=== PATIENT | female | born 1990 | race Hispanic/Latino ===

== ENCOUNTER 2020-02-17 17:24 | Emergency (ER) | payer BC, SELFPAY ==
[2020-02-17 18:56] LABS: Absolute Lymphocytes (CBC) 2.5 K/uL (0.7-4.9); Basophils % 0.3 % (0-1.3); Hematocrit 32.7 % (36.0-45.0); Lymphocytes % 33.8 % (15.3-44.8); MPV 8.8 fL (7.6-11.3); RBC Red Blood Cell Count 4.05 M/uL (3.86-4.86)
[2020-02-17 19:27] LABS: ALT/SGPT 35 U/L (12-78); AST/SGOT 20 U/L (15-37); Albumin 3.6 g/dL (3.4-5.0); Alkaline Phosphatase 49 U/L (45-117); BUN Blood Urea Nitrogen 23 mg/dL (7-18); Bicarbonate 26 mmol/L (21-32); Bilirubin Direct 0.1 mg/dL (0-0.2); Bilirubin Total 0.4 mg/dL (0.2-1.0); Ferritin 4.7 ng/mL (8-388); Glucose Level 82 mg/dL (74-106); Lipase 120 U/L (73-393); Potassium 4.4 mmol/L (3.5-5.1); Protein, Total 7.4 g/dL (6.4-8.2); Sodium Level 139 mmol/L (136-145); Troponin (Emerg Dept Use Only) < 0.02 ng/mL (0.0-0.045)
[2020-02-17 19:28] LABS: C-Reactive Protein < 2.90 mg/L (<3.00)
--- NOTE | 2020-02-17 19:31 | RAD REPORT ---
EXAM DESCRIPTION: RAD - Chest Single View - 02/17/2020 6:09 pm CLINICAL HISTORY: DYSPNEA, fever, positive COVID test COMPARISON: Two view chest February 2018 TECHNIQUE: AP portable chest image was obtained 02/17/2020 6:09 pm . FINDINGS: Lung volumes are low. No peripheral mass or consolidation. Heart and vasculature are anat l. No measurable pleural effusion and no pneumothorax. No acute bony abnormality seen. No acute aorti c findings suspected. IMPRESSION: No acute cardiopulmonary process.
[2020-02-17 19:36] LABS: Protime INR 0.97
--- NOTE | 2020-02-17 19:41 | ER ---
Nurse's Notes [facility] Name: Eleni Zendejas Age: 29 yrs Sex: Female : 1990 Arrival Date: 02/17/2020 Time: 17:29 Bed 5 Private MD: Diagnosis: Coronavirus infection, unspecified Presentation: 02/16 17:36 Chief complaint: Patient states: Tested positive for Covid 02/05/20. My chest pain ca1 getting worse and worse and SOB with exertion. Coronavirus screen: Client reports previous positive COVID test result. Date of collection: February 05, 2020. Ebola Screen: Patient negative for fever greater than or equal to 101.5 degrees Fahrenheit, and additional compatible Ebola Virus Disease symptoms Patient denies exposure to infectious person. Patient denies travel to an Ebola-affected area in the 21 days before illness onset. No symptoms or risks identified at this time. Initial Sepsis Screen: Does the patient meet any 2 criteria? No. Patient's initial sepsis screen is negative. Does the patient have a suspected source of infection? No. Patient's initial sepsis screen is negative. Risk Assessment: Do you want to hurt yourself or someone else? Patient reports no desire to harm self or others. Onset of symptoms was February 17, 2020. 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 - Social history:: Smoking status: Patient denies any tobacco usage or history of. Screenin:45 Abuse screen: Denies threats or abuse. Denies injuries from another. Nutritional ph screening: No deficits noted. Tuberculosis screening: No symptoms or risk factors identified. Fall Risk None identified. Assessment: 18:44 General: Appears in no apparent distress. comfortable, Behavior is calm, cooperative, ph appropriate for age. Pain: Complains of pain in back and chest. Neuro: Level of Consciousness is awake, alert, obeys commands, Oriented to person, place, time, situation. Cardiovascular: Reports chest pain, fatigue, shortness of breath, Capillary refill < 3 seconds in bilateral fingers Patient's skin is warm and dry. Respiratory: Reports shortness of breath cough that is Airway is patent Respiratory effort is even, unlabored, Respiratory pattern is regular, symmetrical. GI: No signs and/or symptoms were reported involving the gastrointestinal system. Derm: Skin is intact, is healthy with good turgor, Skin is pink, warm \T\ dry. Musculoskeletal: Circulation, motion, and sensation intact. Range of motion: intact in all extremities. Vital Signs: 17:36 BP 128 / 86; Pulse 73; Resp 16 S; Temp 97.1(TE); Pulse Ox 100% on R/A; Weight 97.52 kg ca1 (R); Height 5 ft. 5 in. (165.10 cm) (R); Pain 5/10; 18:45 BP 110 / 74; Pulse 68; Resp 18; Pulse Ox 100% on R/A; ph 19:47 BP 107 / 77; Pulse 68; Resp 18; Temp 97.3; Pulse Ox 100% on R/A; mg2 17:36 Body Mass Index 35.78 (97.52 kg, 165.10 cm) ca1 ED Course: 17:29 Patient arrived in ED. rg4 17:38 Triage completed. ca1 17:39 Arm band placed on right wrist. ca1 17:49 Patient has correct armband on for positive identification. Bed in low position. Call mh5 light in reach. Side rails up X2. Pillow given. residential monitor on. Pulse ox on. NIBP on. 17:52 Day Chapman FNP-C is [facility]. kb 17:52 Allen Reyes MD is Attending Physician. kb 17:57 Alley Lopez, FLOR is Primary Nurse. ph 18:07 CXR XRAY In Process Unspecified. EDMS 18:32 EKG done, by ED staff. mh5 19:20 Primary Nurse role handed off by Alley Lopez, RN tt3 19:44 Ramana Mars, FLOR is Primary Nurse. mg2 19:47 No provider procedures requiring assistance completed. Patient did not have IV access mg2 during this emergency room visit. Administered Medications: No medications were administered Outcome: 19:41 Discharge ordered by . kb 19:52 Discharged to home ambulatory. mg2 19:52 Condition: stable 19:52 Discharge instructions given to patient, Instructed on discharge instructions, follow up and referral plans. Demonstrated understanding of instructions, follow-up care. 19:53 Patient left the ED. mg2 Signatures: Dispatcher [employer] EDDay Roberson, PRINCIPAL ASSOCIATE-C PRINCIPAL ASSOCIATE-Alley Vázquez, FLOR RN ph Ro Andrade 4 Pretty Wallis 5 Ramana Mars RN RN mg2 Katherine Ramos RN RN ca1 Ana, Galindo tt3 Corrections: (The following items were deleted from the chart) 17:40 17:39 PMHx: None; ca1 ca1
--- NOTE | 2020-02-17 19:41 | EDPHYS ---
Physician Documentation [facility] Name: Eleni Zendejas Age: 29 yrs Sex: Female : 1990 Arrival Date: 02/17/2020 Time: 17:29 Bed 5 Private MD: ED Physician Allen Reyes HPI: 02/16 20:29 This 29 yrs old Female presents to ER via Ambulatory with complaints of kb Covid+, Shortness Of Breath, Chest Pain. 20:29 The patient or guardian reports cough, difficulty breathing. Onset: The kb symptoms/episode began/occurred 2 week(s) ago. Severity of symptoms: At their worst the symptoms were moderate, in the emergency department the symptoms are unchanged. Modifying factors: The symptoms are alleviated by nothing, the symptoms are aggravated by nothing. Associated signs and symptoms: The patient has no apparent associated signs or symptoms. The patient has not experienced similar symptoms in the past. The patient has not recently seen a physician. Pt reports she was diagnosed with covid 2 weeks ago and is still having cough and shortness of breath so she wanted to make sure everything was ok. 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 - Social history:: Smoking status: Patient denies any tobacco usage or history of. ROS: 20:28 Constitutional: Negative for fever, chills, and weight loss, Cardiovascular: Negative kb for chest pain, palpitations, and edema, Abdomen/GI: Negative for abdominal pain, nausea, vomiting, diarrhea, and constipation, Back: Negative for injury and pain, MS/Extremity: Negative for injury and deformity, Skin: Negative for injury, rash, and discoloration, Neuro: Negative for headache, weakness, numbness, tingling, and seizure. 20:28 Respiratory: Positive for cough, shortness of breath. Exam: 18:33 Constitutional: This is a well developed, well nourished patient who is awake, alert, kb and in no acute distress. Head/Face: Normocephalic, atraumatic. Chest/axilla: Normal chest wall appearance and motion. Nontender with no deformity. No lesions are appreciated. Cardiovascular: Regular rate and rhythm with a normal S1 and S2. No gallops, murmurs, or rubs. Normal PMI, no JVD. No pulse deficits. Respiratory: Lungs have equal breath sounds bilaterally, clear to auscultation and percussion. No rales, rhonchi or wheezes noted. No increased work of breathing, no retractions or nasal flaring. Abdomen/GI: Soft, non-tender, with normal bowel sounds. No distension or tympany. No guarding or rebound. No evidence of tenderness throughout. Skin: Warm, dry with normal turgor. Normal color with no rashes, no lesions, and no evidence of cellulitis. MS/ Extremity: Pulses equal, no cyanosis. Neurovascular intact. Full, normal range of motion. Neuro: Awake and alert, GCS 15, oriented to person, place, time, and situation. Cranial nerves II-XII grossly intact. Motor strength 5/5 in all extremities. Sensory grossly intact. Cerebellar exam normal. Normal gait. 18:33 ECG was reviewed by the Attending Physician. Vital Signs: 17:36 BP 128 / 86; Pulse 73; Resp 16 S; Temp 97.1(TE); Pulse Ox 100% on R/A; Weight 97.52 kg ca1 (R); Height 5 ft. 5 in. (165.10 cm) (R); Pain 5/10; 18:45 BP 110 / 74; Pulse 68; Resp 18; Pulse Ox 100% on R/A; ph 19:47 BP 107 / 77; Pulse 68; Resp 18; Temp 97.3; Pulse Ox 100% on R/A; mg2 17:36 Body Mass Index 35.78 (97.52 kg, 165.10 cm) ca1 MDM: 17:52 Patient medically screened. kb 19:40 Data reviewed: vital signs, nurses notes. Data interpreted: Pulse oximetry: on room air kb is 100 %. Interpretation: normal. Counseling: I had a detailed discussion with the patient and/or guardian regarding: the historical points, exam findings, and any diagnostic results supporting the discharge/admit diagnosis, lab results, radiology results, the need for outpatient follow up, a family practitioner, to return to the emergency department if symptoms worsen or persist or if there are any questions or concerns that arise at home. 02/16 17:53 Order name: Blood Culture Adult (2) kb 02/16 17:53 Order name: BMP kb 02/16 17:53 Order name: C-Reactive Protein kb 02/16 17:53 Order name: CBC with Diff kb 02/16 17:53 Order name: D-Dimer kb 02/16 17:53 Order name: Ferritin kb 02/16 17:53 Order name: Lactate kb 02/16 17:53 Order name: LFT's kb 02/16 17:53 Order name: Lipase kb 02/16 17:53 Order name: Procalcitonin kb 02/16 17:53 Order name: PT-INR; Complete Time: 19:38 kb 02/16 17:53 Order name: Ptt, Activated; Complete Time: 19:38 kb 02/16 17:53 Order name: Troponin (emerg Dept Use Only); Complete Time: 19:29 kb 02/16 17:54 Order name: Blood Culture EDMS 02/16 17:53 Order name: CXR XRAY; Complete Time: 19:32 kb 02/16 17:53 Order name: EKG; Complete Time: 17:54 kb 02/16 17:53 Order name: Cardiac monitoring; Complete Time: 18:46 kb 02/16 17:53 Order name: Droplet/Contact Precautions; Complete Time: 18:46 kb 02/16 17:53 Order name: EKG - Nurse/Tech; Complete Time: 18:32 kb 02/16 17:53 Order name: IV Start; Complete Time: 18:46 kb 02/16 17:54 Order name: Basic Metabolic Panel; Complete Time: 19:29 EDMS 02/16 17:54 Order name: C-Reactive Protein; Complete Time: 19:29 EDMS 02/16 17:54 Order name: CBC with Automated Diff; Complete Time: 18:58 EDMS 02/16 17:54 Order name: D-Dimer; Complete Time: 19:38 EDMS 02/16 17:54 Order name: Ferritin; Complete Time: 19:29 EDMS 02/16 17:54 Order name: Lactate; Complete Time: 19:01 EDMS 02/16 17:54 Order name: Liver (Hepatic) Function; Complete Time: 19:29 EDMS 02/16 17:54 Order name: Lipase; Complete Time: 19:29 EDMO 02/16 17:54 Order name: Procalcitonin; Complete Time: 19:41 EDMO 02/16 17:53 Order name: Labs collected and sent; Complete Time: 18:46 kb 02/16 17:53 Order name: O2 Per Protocol; Complete Time: 18:46 kb 02/16 17:53 Order name: O2 Sat Monitoring; Complete Time: 18:46 kb EC:33 Rate is 67 beats/min. Rhythm is regular. QRS [place] is Normal. TN interval is normal at kb 162 msec. QRS interval is normal at 78 msec. QT interval is normal at 404 msec. Administered Medications: No medications were administered Disposition: 02/17/20 19:41 Discharged to Home. Impression: Coronavirus infection, unspecified. - Condition is Stable. - Discharge Instructions: Viral Respiratory Infection, [id number]-Jo-[id number], COVID-19. - Medication Reconciliation Form, Thank You Letter, Antibiotic Education, Prescription Opioid Use form. - Follow up: Emergency Department; When: As needed; Reason: Worsening of condition. Follow up: Private Physician; When: 2 - 3 days; Reason: Recheck today's complaints, Continuance of care, Re-evaluation by your physician. Signatures: Dispatcher [employer] EDMO Day Chapman, MEDIA THEORIST AND AUTHOR OF-C MEDIA THEORIST AND AUTHOR OF-Ramana Heard RN RN mg2 Katherine Ramos RN RN ca1 Corrections: (The following items were deleted from the chart) 17:40 17:39 PMHx: None; ca1 ca1 19:53 19:41 02/17/2020 19:41 Discharged to Home. Impression: Coronavirus infection, mg2 unspecified. Condition is Stable. Forms are Medication Reconciliation Form, Thank You Letter, Antibiotic Education, Prescription Opioid Use. Follow up: Emergency Department; When: As needed; Reason: Worsening of condition. Follow up: Private Physician; When: 2 - 3 days; Reason: Recheck today's complaints, Continuance of care, Re-evaluation by your physician. kb
[2020-02-17 20:08] VITALS: O2SAT 100
[2020-02-17 20:10] VITALS: BP 107/77; TEMP 97.3
--- NOTE | 2020-02-18 14:06 | EKG ---
Test Date: 2020-02-17 Test Time: 18:24:23 Manager Content: TYSHAWN MEASUREMENT RESULTS: Intervals: Rate: 67 OK: 162 QRSD: 78 QT: 404 QTc: 426 [place]: P: 20 OK: 162 QRS: -15 T: 11 INTERPRETIVE STATEMENTS: Normal sinus rhythm Normal ECG No previous ECG available for comparison Electronically Signed On 02-18-20 14:04:44 SERVICE TECH by Edwin Aldrich
== END 2020-02-17 19:53 | disposition home or self-care (01) ==
LOC: ER 17:24
DX: U07.1 COVID-19 (principal); R07.9 Chest pain, unspecified
CPT/HCPCS: 36415; 71045; 80048; 80076; 82728; 83605; 83690; 84145; 84484; 85025; 85379; 85610; 85730; 86140; 87040; 93005; 99284

== ENCOUNTER 2021-04-30 23:16 | Emergency (ER) | payer SELFPAY ==
--- OUTSIDE RECORDS SUMMARY | 2021-04-30 23:19 | XMS REPORT | Continuity of Care Document ---
:1990 Author Organization Formerly [facility] t Address [address] [place] [address] Care Team Providers Name Role Phone PCP, DOES NOT HAVE A Primary Care Physician Unavailable Kathy SANDS Attending Clinician Unavailable Ktahy Sands DO Attending Clinician Kathy SANDS Admitting Clinician Unavailable Problems Condition Condition Condition Status Onset Resolution Last Treating Co mments Source Name Details Category Date Date Treatment Clinician Date No known No known Disease Unive rs active active ity of problems problems [facility] Allergies, Adverse Reactions, Alerts Allergy Allergy Status Severity Reaction(s) Onset Inactive Treating Comm ents Source Name Type Date Date Clinician NO KNOWN Drug Active Univers ALLERGIE Class ity of S [facility] Social History Social Habit Start Date Stop Date Quantity Comments Source Exposure to Not sure [facility] SARS-CoV-2 (event) Medica l Branch Sex Assigned At [birth year] [facility] 00:00:00 00:00:00 [facility] Smoking Status Start Date Stop Date Source Unknown if ever smoked [facility] Medications Ordered Filled Start Stop Current Ordering Indication Dosage Frequency Signature Comments Components Source Medication Medication Date Date Medication? Clinician (SIG) Name Name diphenhydrA 2020-02 No 25mg 25 mg, Uni vers MINE 03-16 Slow IV ity of (BENADRYL) 18:15: 17:47 [place], [place] injection 00 :00 ONCE, 1 Medical 25 mg dose, On Branch 01/14/21 at 1215, STAT metoclopram 2021-1 2021- No 10mg 10 mg, Uni vers jayson HCl 03-16 Slow IV ity of (REGLAN) 18:15: 17:47 Push, [place] injection 00 :00 ONCE, 1 Medical 10 mg dose, On Branch 01/14/21 at 1215, ZORAN NaCl 0.9% 2020-02- No 1000mL at 999 Uni vers (NS) bolus 03-16 mL/hr, ity of infusion 18:15: 18:52 1,000 mL, Naresh as 1,000 mL 00 :00 IV Medical Infusion, Branch ONCE, 1 dose, On Thu01/14/21 at 1215, ZORAN No known 2020-02 No Univers medications 03-16 ity of 11:08: [place] 40 [facility] Vital Signs Vital Name Observation Time Observation Value Comments Source Systolic blood 2021-01-14 17:11:00 123 mm[Hg] [facility] sity of pressure [facility] Diastolic blood 2021-01-14 17:11:00 78 mm[Hg] [facility] of pressure [facility] Heart rate 2021-01-14 17:11:00 78 /min [facility] Body temperature 2021-01-14 17:11:00 37 [facility] Respiratory rate 2021-01-14 17:11:00 18 /[facility] height 2021-01-14 17:11:00 162.6 cm [facility] Body weight 2021-01-14 17:11:00 113.399 kg [facility] BMI 2021-01-14 17:11:00 42.91 kg/m2 [facility] Oxygen saturation in 2021-01-14 17:11:00 98 /min [facility] Arterial blood by [facility] Pulse oximetry [place] Procedures Procedure Date / Time Performed Performing Clinician Sourc e CT HEAD WO CONTRAST 2021-01-14 18:10:33 [facility] POCT TEST 2021-01-14 17:34:00 [facility] COVID-19 (ID NOW 2021-01-14 17:21:00 [facility]ury [facility]ands [facility] NOTICE OF PRIVACY 2021-01-14 17:06:39 Doctor Unassigned, No [facility] [place] [facility] Name [facility] CONSENT/REFUSAL FOR 2021-01-14 17:06:18 [facility] Name [facility] TREATMENT Encounters Start End Encounter Admission Attending Care Care Encounter Source Date/Time Date/Time Type Type Clinicians Facility Department ID 2021-01-14 2021-01-14 Emergency X [facility] ERT [id number] Univers 11:15:00 12:52:00 AURY beard [facility] 2021-01-14 2021-01-14 Emergency [place] [facility] [id number] Univers 11:15:00 12:52:00 Aury [place] [id number] chirag [facility] [id number] [facility] [id number] [address] Results Test Description Test Time Test Comments Results Result Comments Source POCT TEST 2021-01-14 17:34:00 Test Item Value Reference Range Interpretation Comme nts POCT PREG (test code = 1605) negative POCT PREG LOT # (test code = 3575) [id number] POCT PREG TEST DATE (test code = 3576) 2022-03-18 Lab Interpretation (test code = 73025-6) Normal [facility]
[2021-05-01 01:00] LABS: SARS-COV-2 RT PCR NEGATIVE (NEGATIVE)
--- NOTE | 2021-05-01 01:25 | EDPHYS ---
Physician Documentation [facility] Name: Eleni Zendejas Age: 30 yrs Sex: Female : 1990 Arrival Date: 04/30/2021 Time: 23:17 Bed 14 Private MD: ED Physician Gonzalo Tran HPI: 04/30 23:53 This 30 yrs old Female presents to ER via Ambulatory with complaints of Nose mh7 Bleed, Cough. 23:53 The patient or guardian reports cough, that is intermittent, described as moderate, mh7 with productive sputum, that is bloody. Onset: The symptoms/episode began/occurred last night. Severity of symptoms: At their worst the symptoms were moderate, last night, in the emergency department the symptoms have improved, moderately. Modifying factors: The symptoms are alleviated by nothing, the symptoms are aggravated by nothing. Associated signs and symptoms: Pertinent positives: rhinorrhea, nose bleeding, Pertinent negatives: chest pain, diarrhea, ear ache, fever, nausea, sore throat. 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 - Social history:: Smoking status: Patient denies any tobacco usage or history of. ROS: 23:53 Constitutional: Negative for fever, chills, and weight loss, Eyes: Negative for injury, mh7 pain, redness, and discharge, Neck: Negative for injury, pain, and swelling, Cardiovascular: Negative for chest pain, palpitations, and edema, Abdomen/GI: Negative for abdominal pain, nausea, vomiting, diarrhea, and constipation, Back: Negative for injury and pain, : Negative for injury, bleeding, discharge, and swelling, MS/Extremity: Negative for injury and deformity, Skin: Negative for injury, rash, and discoloration, Neuro: Negative for headache, weakness, numbness, tingling, and seizure, Psych: Negative for depression, anxiety, suicide ideation, homicidal ideation, and hallucinations, Allergy/Immunology: Negative for hives, rash, and allergies, Endocrine: Negative for neck swelling, polydipsia, polyuria, polyphagia, and marked weight changes, Hematologic/Lymphatic: Negative for swollen nodes, abnormal bleeding, and unusual bruising. Exam: 23:53 Constitutional: This is a well developed, well nourished patient who is awake, alert, mh7 and in no acute distress. Head/Face: Normocephalic, atraumatic. Eyes: Pupils equal round and reactive to light, extra-ocular motions intact. Lids and lashes normal. Conjunctiva and sclera are non-icteric and not injected. Cornea within normal limits. Periorbital areas with no swelling, redness, or edema. ENT: Nares patent. No nasal discharge, no septal abnormalities noted. Tympanic membranes are normal and external auditory canals are clear. Oropharynx with no redness, swelling, or masses, exudates, or evidence of obstruction, uvula midline. Mucous membranes moist. Neck: Trachea midline, no thyromegaly or masses palpated, and no cervical lymphadenopathy. Supple, full range of motion without nuchal rigidity, or vertebral point tenderness. No Meningismus. Chest/axilla: Normal chest wall appearance and motion. Nontender with no deformity. No lesions are appreciated. Cardiovascular: Regular rate and rhythm with a normal S1 and S2. No gallops, murmurs, or rubs. Normal PMI, no JVD. No pulse deficits. Respiratory: Lungs have equal breath sounds bilaterally, clear to auscultation and percussion. No rales, rhonchi or wheezes noted. No increased work of breathing, no retractions or nasal flaring. Abdomen/GI: Soft, non-tender, with normal bowel sounds. No distension or tympany. No guarding or rebound. No evidence of tenderness throughout. Back: No spinal tenderness. No costovertebral tenderness. Full range of motion. Skin: Warm, dry with normal turgor. Normal color with no rashes, no lesions, and no evidence of cellulitis. MS/ Extremity: Pulses equal, no cyanosis. Neurovascular intact. Full, normal range of motion. Neuro: Awake and alert, GCS 15, oriented to person, place, time, and situation. Cranial nerves II-XII grossly intact. Motor strength 5/5 in all extremities. Sensory grossly intact. Cerebellar exam normal. Normal gait. Psych: Awake, alert, with orientation to person, place and time. Behavior, mood, and affect are within normal limits. Vital Signs: 23:21 BP 112 / 61; Pulse 100; Resp 18; Temp 98.2; Pulse Ox 99% on R/A; Weight 111.13 kg; tw5 Height 5 ft. 7 in. (170.18 cm); Pain 02/25; 05/01 01:32 BP 118 / 70; Pulse 87; Resp 16; Pulse Ox 100% on R/A; sm5 04/30 23:21 Body Mass Index 38.37 (111.13 kg, 170.18 cm) tw5 MDM: 01:21 Differential Diagnosis: Bronchitis Influenza Upper Respiratory Infection Sinusitis [facility] Allergic Rhinitis Viral Syndrome Pneumonia Other Epistaxis. Data reviewed: vital signs, nurses notes, lab test result(s), Flu: positive Covid negative, radiologic studies, plain films. Data interpreted: Pulse oximetry: on room air is 99 %. Interpretation: normal. Counseling: I had a detailed discussion with the patient and/or guardian regarding: the historical points, exam findings, and any diagnostic results supporting the discharge/admit diagnosis, lab results, radiology results, the need for outpatient follow up, to return to the emergency department if symptoms worsen or persist or if there are any questions or concerns that arise at home. Response to treatment: the patient's symptoms have resolved after treatment, the patient's blood pressure is in an acceptable range, mental status has returned to baseline, the patient no longer shows bradycardia, the patient is not short of breath, the patient is not tachycardic, the patient's pain is gone, the patient's temperature has normalized, No nasal bleeding. ED course: Feels better, well-appearing, no acute distress, vitals are stable, no focal neurologic deficits. No nasal bleeding or discharge, no chest pain, shortness of breath, nausea, vomiting, or other complaints.. 01:25 Patient medically screened. [facility] 04/30 23:51 Order name: COVID-19/FLU A+B (Document "Date of Onset" if Symptomatic) [facility] 04/30 23:52 Order name: COVID-19/FLU A+B; Complete Time: 01:18 EDAR 04/30 23:51 Order name: Chest Single View XRAY [facility] Administered Medications: 01:32 Drug: Tamiflu (oseltamivir) 75 mg Route: PO; sm5 01:33 Follow up: Response: Medication administered at discharge. [facility] Disposition Summary: 05/01/21 01:25 Discharge Ordered Location: Home [facility] Problem: [facility] Symptoms: have improved [facility] Condition: Stable [facility] Diagnosis - Influenza [facility] - Epistaxis - Resolved [facility] Followup: [facility] - With: Private Physician - When: 1 - 2 days - Reason: Worsening of condition, Recheck today's complaints, Continuance of care, Re-evaluation by your physician Discharge Instructions: - Discharge Summary Sheet [facility] - Influenza, Adult, [id number] [facility] - Nosebleed, Adult, [id number] [facility] Forms: - Medication Reconciliation Form [facility] - Thank You Letter [facility] - Antibiotic Education [facility] - Prescription Opioid Use [facility] Prescriptions: - Afrin (oxymetazoline) 0.05 % Nasal spray,non-aerosol - spray 2 spray by INTRANASAL route 2 times per day for 3 days; 1 bottle; [facility] Refills: 0, Product Selection Permitted - Tessalon Perles 100 mg Oral Capsule - take 1 capsule by ORAL route every 8 hours As needed; 15 capsule; Refills: 0, [facility] Product Selection Permitted - Tamiflu 75 mg Oral Capsule - take 1 tablet by ORAL route every 12 hours for 5 days; 9 tablet; Refills: 0, [facility] Product Selection Permitted Signatures: Dispatcher [employer] [facility] Gonzalo Tran MD MD [facility] Bindu Guevara [facility] Marainna Gomez, RN RN 5
--- NOTE | 2021-05-01 01:25 | ER ---
Nurse's Notes [facility] Name: Eleni Zendejas Age: 30 yrs Sex: Female : 1990 Arrival Date: 04/30/2021 Time: 23:17 Bed 14 Private MD: Diagnosis: Influenza;Epistaxis-Resolved Presentation: 04/30 23:21 Chief complaint: Patient states: "I have chest congestion. I have been coughing a lot tw5 and I thought I was coughing up a little blood. When I woke up my pillow was covered in blood. My nose started bleeding it was so bad for about 10 min. It was bleeding so bad I could feel it running down the back of my throat.". Coronavirus screen: Vaccine status: Patient reports receiving the 1st dose of the Covid vaccine. [employer]. Ebola Screen: Patient negative for fever greater than or equal to 101.5 degrees Fahrenheit, and additional compatible Ebola Virus Disease symptoms Patient denies exposure to infectious person. Patient denies travel to an Ebola-affected area in the 21 days before illness onset. Initial Sepsis Screen: Does the patient meet any 2 criteria? No. Patient's initial sepsis screen is negative. Does the patient have a suspected source of infection? No. Patient's initial sepsis screen is negative. Risk Assessment: Do you want to hurt yourself or someone else? Patient reports no desire to harm self or others. Onset of symptoms was May 01, 2021. 23:21 Method Of Arrival: Ambulatory tw5 23:21 Acuity: KEVEN 3 tw5 Triage Assessment: 23:24 General: Appears in no apparent distress. Behavior is calm, cooperative, appropriate tw5 for age. Pain: Complains of pain in chest Pain currently is 0 out of 10 on a pain scale. at worst was 10 out of 10 on a pain scale. Aggravated by coughing. 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 - Social history:: Smoking status: Patient denies any tobacco usage or history of. Screenin/16 01:33 Abuse screen: Denies threats or abuse. Denies injuries from another. Nutritional sm5 screening: No deficits noted. Tuberculosis screening: No symptoms or risk factors identified. Fall Risk None identified. Assessment: :32 General: Appears in no apparent distress. Behavior is cooperative. Respiratory: Reports sm5 cough that is Airway is patent Trachea midline Respiratory effort is even, unlabored. EENT: Reports nasal congestion. EENT: Reports. Vital Signs: 04/30 23:21 BP 112 / 61; Pulse 100; Resp 18; Temp 98.2; Pulse Ox 99% on R/A; Weight 111.13 kg; tw5 Height 5 ft. 7 in. (170.18 cm); Pain /; 05/01 01:32 BP 118 / 70; Pulse 87; Resp 16; Pulse Ox 100% on R/A; sm5 04/30 23:21 Body Mass Index 38.37 (111.13 kg, 170.18 cm) tw5 ED Course: 04/30 23:17 Patient arrived in ED. kc5 23:24 Triage completed. tw5 23:24 Arm band placed on left wrist. tw5 23:28 Marianna Gomez, FLOR is Primary Nurse. sm5 23:33 Gonzalo Tran MD is Attending Physician. [facility] 05/01 00:01 COVID-19/FLU A+B (Document "Date of Onset" if Symptomatic) Sent. 5 00:01 COVID-19/FLU A+B Sent. sm5 00:15 Chest Single View XRAY In Process Unspecified. EDMS 01:33 Patient has correct armband on for positive identification. Bed in low position. Call [facility] light in reach. Side rails up X2. 01:33 No provider procedures requiring assistance completed. Patient did not have IV access [facility] during this emergency room visit. Administered Medications: :32 Drug: Tamiflu (oseltamivir) 75 mg Route: PO; sm5 01:33 Follow up: Response: Medication administered at discharge. 5 Outcome: :25 Discharge ordered by . [facility] 01:33 Discharged to home ambulatory, with friend. sm5 01:33 Condition: stable 01:33 Discharge instructions given to patient, friend, Instructed on discharge instructions, follow up and referral plans. medication usage, Demonstrated understanding of instructions, follow-up care, medications, Prescriptions given X 3. 01:33 Patient left the ED. sm5 Signatures: Dispatcher [employer] EDGonzalo Tabor MD MD 7 Bindu Guevara 5 Rola Sylvester5 Marianna Gomez RN RN sm5
[2021-05-01] MEDS ORDERED: OSELTAMIVIR 75 MG CAP ONE (01:30)
[2021-05-01 01:59] VITALS: TEMP 98.2
[2021-05-01 02:00] VITALS: BP 118/70; O2SAT 100
--- NOTE | 2021-05-01 14:24 | RAD REPORT ---
EXAM DESCRIPTION: Chest Single View CLINICAL HISTORY: 30 years Female Cough; congestion COMPARISON: None. FINDINGS: Poor inspiratory effort. The cardiomediastinal silhouette appears unremarkable. No consolidating infiltrates or pleural effusions. No pneumothorax. IMPRESSION: No acute abnormality is identified. Electronically signed by: Toño Kyle MD 05/01/2021 12:23 AM CDT Due to temporary technical issues with the PACS/Fluency reporting system, reports are being signed by the in house radiologist without review as a courtesy to ensure prompt reporting. The interpreting r adiologist is fully responsible for the content of the report.
== END 2021-05-01 01:33 | disposition home or self-care (01) ==
LOC: ER 23:16
DX: R04.0 Epistaxis (principal); J11.1 Influenza due to unidentified influenza virus with other respiratory manifestations; R05.9 Cough, unspecified; J34.89 Other specified disorders of nose and nasal sinuses
CPT/HCPCS: 0240U; 71045; 99284